=== PATIENT | female | born 1995 | race Caucasian/White ===

== ENCOUNTER 2022-09-20 03:12 | Outpatient (RCR) | payer OTHER, BC, SELFPAY ==
--- NOTE | 2022-09-20 04:03 | PC.NURSE ---
Dr. Angela Sousa notified at 0305 of PT 39 weeks arriving to unit with c/o DFM and leaking. PT reports she felt baby move on her way to unit. PT marking movement via marker. ROM plus negative. PT davey q5-7mins, resting tone soft to palpation. PT does not feel contractions at this time. Orders for discharge received.
[2022-09-20 05:18] VITALS: BP 102/79; PULSE 99
== END 2022-12-19 23:59 | disposition home or self-care (01) ==
LOC: ANHOBOP 03:12
PROVIDERS: PCP Emergency Medicine; Visit Provider Obstetrics & Gynecology
DX: O36.8130 Decreased fetal movements, third trimester, not applicable or unspecified (principal); Z3A.39 39 weeks gestation of pregnancy
CPT/HCPCS: 59025; 84112

== ENCOUNTER 2022-09-22 09:09 | Inpatient (IN) | payer OTHER, BC, SELFPAY ==
[2022-09-22] VITALS (58 sets, daily range): BP systolic 92–146; BP diastolic 45–80; PULSE 87–127; RESP 16; TEMP 36.3–36.5; O2SAT 97–100; BMI 35.6
--- NOTE | 2022-09-22 15:14 | LDADM ---
This patient, Mckenzie Fuentes, was admitted to Labor/Delivery/Recovery 106 on 09/22/22 at 09:09. Plans for labor, pain management and were discussed with patient. Patient/family oriented to hospital policies and general routines including ID bracelet, bed and alarms, visiting hours, pain management, procedures, bathroom and other care routines, personal items, smoking policy, room service/diet and guest tray routines, security routines, and visiting hours. Patient/Family are encouraged to report perceived risks to care and to ask questions if they do not understand what they are told or what they should do. See OBIX for further documentation.
[2022-09-22] MEDS: LACTATED RINGERS 1,000 ML 125 ML IV CONT (15:31)
[2022-09-22] MEDS: AMPICILLIN 2 GM/NS 100 ML 2 GM/100 ML BAG IVPB (15:32)
[2022-09-22 15:43] LABS: Basophils Absolute Auto 0.1 K/mm3 (0.0-0.1); Basophils Percent Auto 0.3 % (0.2-1.2); Eosinophils Absolute Auto 0.1 K/mm3 (0-0.3); Eosinophils Percent Auto 0.4 % (0-4.4); Hematocrit 35.7 % (37.0-47.0); Hemoglobin 12.4 g/dL (12.0-15.0); Immature Granulocyte Absolute 0.15 K/mm3 (0.00-0.031); Immature Granulocyte Percent A 0.9 % (0-0.5); Lymphocytes Absolute Auto 2.39 K/mm3 (0.9-3.2); Lymphocytes Percent Auto 13.6 % (18.3-44.2); Mean Corpuscular HGB Conc 34.7 g/dl (32-36); Mean Corpuscular Hemoglobin 29.5 pg (26-34); Mean Platelet Volume 9.7 fl (7.4-10.4); Monocytes Absolute Auto 0.7 K/mm3 (0.1-0.6); Monocytes Percent Auto 3.9 % (2.6-8.5); Neutrophils Absolute Auto 14.2 K/mm3 (1.3-6.7); Neutrophils Percent Auto 80.9 % (45.5-73.1); Platelet Count Result 384 k/mm3 (150-375); Red Cell Distribution Width 13.3 % (11.5-14.5); White Blood Count 17.6 K/mm3 (4.5-10.0)
--- NOTE | 2022-09-22 17:40 | WPDANESEPP ---
Anes - Eval Pre Procedure Procedure: labor epidural Date/Time: 09/22/22 17:40 Pre Op Diagnosis: LABOR Patient Data Age: 26 Gender: F Height: 1.65 m Weight: 97 kg Last Vital Signs Pulse 110 H 09/22/22 16:00 BP 146/69 H 09/22/22 16:00 O2 Del Method Room Air 09/22/22 15:10 Allergies Allergy/AdvReac Type Severity Reaction Status Date / Time No Known Allergies Allergy Verified 09/09/22 13:52 Home Medications Medication Instructions Recorded Confirmed Type prenat.vits,dania,ajr-mego-dfhnd 1 tablet PO DAILY 09/09/22 09/22/22 History Laboratory Tests 09/22/22 14:57 WBC 17.6 H K/mm3 (4.5-10.0) RBC 4.20 M/mm3 (4.2-5.4) Hgb 12.4 g/dL (12.0-15.0) Hct 35.7 L % (37.0-47.0) MCV 85.0 fl (80-100) MCH 29.5 pg (26-34) MCHC 34.7 g/dl (32-36) RDW 13.3 % (11.5-14.5) Plt Count 384 H k/mm3 (150-375) MPV 9.7 fl (7.4-10.4) Immature Gran % (Auto) 0.9 H % (0-0.5) Neut % (Auto) 80.9 H % (45.5-73.1) Lymph % (Auto) 13.6 L % (18.3-44.2) Bulloch % (Auto) 3.9 % (2.6-8.5) Eos % (Auto) 0.4 % (0-4.4) Baso % (Auto) 0.3 % (0.2-1.2) Lymph # (Auto) 2.39 K/mm3 (0.9-3.2) Bulloch # (Auto) 0.7 H K/mm3 (0.1-0.6) Eos # (Auto) 0.1 K/mm3 (0-0.3) Baso # (Auto) 0.1 K/mm3 (0.0-0.1) Abs Immat Gran (auto) 0.15 H K/mm3 (0.00-0.031) Absolute Neuts (auto) 14.2 H K/mm3 (1.3-6.7) Absolute Nucleated RBC 0.0 K/mm3 (0.0-0.012) Nucleated RBC % 0.0 % (0.0-0.2) RPR Pending Blood Type A Positive Antibody Screen Negative Patient hx anesthesia problems: none Family hx anesthesia problems: none Results Review: All pre-operative results and documents have been reviewed as part of the pre-operative evaluation. [facility] Past Medical History Medical History (Updated 09/22/22 @ 17:42 by Fina Tovar CRNA) Asthma childhood asthma Migraine Family History Family History Grandparent Lung cancer Father A-fib Myocardial infarction Social History Social History Smoking status: Never smoker Substance use: never Lack of Transportation: No Lack of Food: Never True Current Housing: I Have Housing Concerned About Future Housing: No Difficulty Paying Gas/Electric Bills: No Difficulty Paying for Meds: No Currently Unemployed: No Education: Don't Know Difficulty w/ Childcare or Family Care: No Spiritual care concerns: No Exam Day of Procedure 09/22/22 17:40 Patient weight: obese Heart: regular rate and rhythm Lungs: normal air movement Airway: Mallampati scale Neurological: alert and oriented
[2022-09-22] MEDS: AMPICILLIN 1 GM/NS 50 ML 1 GM/50 ML BAG IVPB ×2 (19:56→23:51)
[2022-09-22] MEDS: OXYTOCIN 30 UNITS/NS 500 ML 30 UNITS/500 ML BAG 6 UNITS IV CONT (20:18)
[2022-09-22] MEDS: ACETAMINOPHEN 500 MG TABLET 1000 MG PO (23:51)
[2022-09-23] VITALS (210 sets, daily range): BP systolic 80–182; BP diastolic 38–160; PULSE 78–147; RESP 16–20; TEMP 36.3–36.9; O2SAT 79–100
[2022-09-23] MEDS: AMPICILLIN 1 GM/NS 50 ML 1 GM/50 ML BAG IVPB ×3 (04:03→11:58)
[2022-09-23] MEDS: ONDANSETRON INJ 4 MG/2 ML VIAL IV PUSH (04:14)
--- NOTE | 2022-09-23 07:37 | WPDOBADMIT ---
Obstetrics - Admit Note Admission Note: record reviewed. Additions to the history and/or subsequent changes in the physical findings follow. 26 y/o at 39 2/7 weeks here with contractions. Latent labor diagnosed yesterday; patient preferred to stay for labor augmentation. She is now mostly comfortable with epidural, but is very afraid she might feel some pain. GBS pos. AVSS NST reactive TOCO: contractions every 2-4 min ABD soft, nontender, gravid, vertex EXT nontender Cervix 7-8/90/0. AROM with clear fluid. Vertex. A: IUP at term with labor. P: Continue oxytocin for augmentation, ampicillin for GBS. Anticipate .
[2022-09-23] MEDS: LACTATED RINGERS 1,000 ML 125 ML IV CONT (08:12)
--- NOTE | 2022-09-23 12:50 | PM.OBPRVD ---
OB - Delivery Note Procedure Delivery date: 09/23/22 Procedure: Events: Positive Group B Strep (GBS) Induction method: None Delivery augmentation: Rupture of Membranes and Pitocin Delivery monitor: External FHT and External Uterine Route of delivery: Laceration Description: Perineal - 2nd Degree Delivery repair: vicryl (3-0) Specimen: Yes (cord blood) Quantitative Blood Loss (ml): 240 Anesthesia type: Epidural Disposition: PACU Complications: None Narrative: 26 y/o at 39 3/7 weeks gestation who presented to the hospital with contractions. Latent labor was diagnosed. She preferred augmentation with oxytocin. She was given ampicillin for GBS colonization. Oxytocin was administered intravenously. Amniotomy was performed with return of clear fluid. She received an epidural for pain control. Her labor progressed and her cervix dilated completely. She pushed with good effort and delivered the 's head to the perineum, followed by the body. The nose and mouth were bulb suctioned. After a delay, the cord was clamped and cut. The was handed off the field. Cord blood was collected. The placenta delivered spontaneously and was grossly normal in appearance. The usual 3 vessel cord was noted. A second degree midline perineal laceration was sustained. This was reapproximated using 3 0 Vicryl in the usual layered fashion. Excellent hemostasis resulted as did excellent reapproximation of the normal anatomy. Needle and instrument counts were correct. The patient was taken to recovery room in stable condition. The infant went to the nursery in stable condition. I was present and scrubbed for the entire delivery. Baby Date of : 09/23/22 Time of : 12:23 Weeks of gestation at delivery: 39 Infant gender: Male Weight (pounds): 9 Weight (ounces): 1 presentation: vertex position: Right Occiput Anterior Placenta delivery description: Spontaneous and Normal Configuration Cord Vessel Description: 3 Vessels and Delayed Cord Clamping score one minute: 8 score five minutes: 9
--- NOTE | 2022-09-23 12:54 | PM.OBDSVD ---
DS: Admitting Diagnosis Discharge Date 09/25/22 Admitting Diagnosis IUP at 39 3/7 weeks Labor DS: Discharge Diagnosis Discharge Diagnosis (1) (normal spontaneous vaginal delivery): Code(s): O80 - Encounter for full-term uncomplicated delivery Status: Acute OB - DS: Summary OB Procedures : None OB Procedures Intrapartum: GBS prophylaxis OB Procedures: : None Time Spent with Patient Time attestation: Total time spent providing and/or coordinating discharge services: DS: Data Data Completed and Pending Labs on day of discharge: Labs from last 24 hours 09/22/22 14:57 WBC 17.6 H RBC 4.20 Hgb 12.4 Hct 35.7 L MCV 85.0 MCH 29.5 MCHC 34.7 RDW 13.3 Plt Count 384 H MPV 9.7 Immature Gran % (Auto) 0.9 H Neut % (Auto) 80.9 H Lymph % (Auto) 13.6 L [place] % (Auto) 3.9 Eos % (Auto) 0.4 Baso % (Auto) 0.3 Lymph # (Auto) 2.39 [place] # (Auto) 0.7 H Eos # (Auto) 0.1 Baso # (Auto) 0.1 Abs Immat Gran (auto) 0.15 H Absolute Neuts (auto) 14.2 H Absolute Nucleated RBC 0.0 Nucleated RBC % 0.0 RPR Pending Blood Type A Positive Antibody Screen Negative Discharge Plan Discharge Attending physician on discharge: Mathew Rudolph Discharging Clinician: Mathew Rudolph Patient Disposition: Home, Self-Care Activity: pelvic rest Diet: regular Discharge Instructions: Education: Mom and Baby Guide Given to: Mother Follow-Up: Call your delivering provider's office for an appointment to be seen in: 6 Weeks Mom and baby should come to the [facility] for the follow-up appointment. Appointment Date/Time: September 27, 2022 at 10:00 am What to expect at your follow-up visit: Blood Pressure Check Call [phone] if you are unable to keep your appointment time. BREAST CARE: * Wear a snug supportive bra. * For engorgement discomfort: Breast Feeding: * Apply warm moist washcloths * Express milk as needed to relieve engorgement * Wear loose clothing Bottle Feeding: * May apply ice packs * For sore nipples: * Identify correct latch-on * Apply warm moist washcloths before and after nursing * Air dry nipples after nursing * May apply Lansinoh cream to nipples PERINEAL CARE: * Until bleeding stops, use your alexus bottle after urinating * Change your pad frequently throughout the day * You may take sitz baths several times a day (fill your bathtub with warm water and soak for 20 minutes.) Do NOT bathe in the water * No tub baths until seen by your physician - You may shower ACTIVITY: * Rest as much as possible. * Do not exercise or lift anything heavier than your baby (such as laundry or other children.) * Avoid stairs or driving as much as possible. * Do not put anything into the vagina. No douching, tampons, or sexual activity until seen by physician. NOTIFY PHYSICIAN IF YOU HAVE ANY QUESTIONS OR IF ANY OF THE FOLLOWING SYMPTOMS OCCUR: * If your perineum becomes red, swollen, or more painful than what you have experienced in the hospital. * If your vaginal bleeding becomes foul smelling. * If your vaginal bleeding becomes more heavy than a period or if your bleeding changes from pink to bright red. However, you may pass an occasional walnut-sized clot once or twice for the first week . * If you experience a sharp, shooting pain in you calves. * If you discover a hard, reddened area on your breast or if you experience flu-like symptoms. * If you have a fever of 100.4 or greater DIET: * Eat regular, well-balanced meals. * Drink plenty of fluids daily. If , drink to thirst.Call or return if temperature above 100.4? F, increased abdominal pain, increased vaginal bleeding or any new problems. Stand Alone Forms: General Discharge Information Follow-up/Referrals: Kd Almazan MD [Physician] - 6 Weeks Disc
[2022-09-23] MEDS: OXYTOCIN 30 UNITS/NS 500 ML 30 UNITS/500 ML BAG 125 UNITS IV CONT (12:55)
[2022-09-23 13:15] LABS: Rapid Plasma Reagin Non-Reactive (NonReactive)
[2022-09-23] MEDS: IBUPROFEN 600 MG TABLET PO (14:35)
[2022-09-23] MEDS: WITCH HAZEL 40 PADS 1 PAD TOPICAL (15:20)
[2022-09-23] MEDS: BENZOCAINE 20% AER SPR (*SP) 56 GM CAN 1 SPRAY TOPICAL (15:20)
--- NOTE | 2022-09-23 15:26 | PC.NURSE ---
Patient transferred to post room #280 via wheelchair. Support person present. Oriented to unit, room, information board, rooming in, admission packet and security measures. Patient verbalizes understanding.
[2022-09-24 01:10] VITALS: BP 107/65; PULSE 86; RESP 16; TEMP 36.7; O2SAT 99
[2022-09-24] MEDS: IBUPROFEN 600 MG TABLET PO ×2 (04:42→17:22)
[2022-09-24 06:20] LABS: Hematocrit 30.1 % (37.0-47.0); Hemoglobin 10.2 g/dL (12.0-15.0)
[2022-09-24 07:50] VITALS: BP 106/68; PULSE 86; RESP 16; TEMP 36.8; O2SAT 98
--- NOTE | 2022-09-24 07:58 | WPDANLDPN2 ---
Anes-Prog Note L&D Date/Time: 09/24/22 07:58 Neuro status: Neuro function grossly intact. Vital Signs: Last Vital Signs Temp 36.7 C 09/24/22 01:10 Pulse 86 09/24/22 01:10 Resp 16 09/24/22 01:10 BP 107/65 09/24/22 01:10 Pulse Ox 99 09/24/22 01:10 O2 Del Method Room Air 09/22/22 15:10 Pain score (VAS): 0 I/O: Intake & Output 09/23/22 09/23/22 09/24/22 15:59 23:59 07:59 Intake Total 1000 480 Output Total 1215 Balance -215 480 Patient feedback: Patient satisfied with anesthetic care.
--- NOTE | 2022-09-24 08:09 | PM.OBPNVD ---
OB - PN: Subj Subjective Date/time seen: 09/24/22 08:09 Narrative: Pain OK. Would like circumcision for son. OB - PN: Obj Data Labs 09/24/22 04:35 Labs: Laboratory Results - last 24 hr 09/22/22 09/24/22 14:57 04:35 Hgb 10.2 L Hct 30.1 L RPR Non-reactive OB - PN A/P Plan Comments: A: PPD#1, doing well. P: Routine care. Reviewed circ. Exam Psych: Other: AVSS ABD soft, nontender, fundus firm EXT nontender
[2022-09-24] MEDS: DOCUSATE SODIUM 100 MG CAPSULE PO ×2 (08:50→17:22)
[2022-09-24] MEDS: MULTIVIT/MIN/PREN/FOL AC/IRON TABLET 1 TAB PO ×2 (08:50)
--- NOTE | 2022-09-24 15:32 | PC.NURSE ---
[id number] Introductions were made, then consulted with patient to assess needs related to . Mother led the conversation with her?plans to feed?her infant and the?experience so far. Resources provided for inpatient and outpatient services with the feeding sheet, mom/baby guide and name written on the white board. Mother voiced understanding of information and requested assistance with . Mother works well with her with encouragement and education. Encouraged understanding of the benefits of skin to skin (demonstrating unwrapping infant and placing upright on her chest), stimulating with massage touch, changing positions to encourage wakefulness, how to watch for early feeding cues, responsive feeding, feeding on demand (aiming for 8-12 times in 24 hours, about every 2-3 hours), milk production, building/maintaining a milk supply, duration of feeding, signs of adequate intake/output and how to record on the feeding sheet. Reviewed positioning and ear, shoulder, hip alignment, supporting the breast to facilitate a deep latch, asymmetrical latch (off-center), leading with the chin with a big, open, wide gape and body close to mother. latched optimally to the right breast in football position. Education given to mother of how to visualize suck/swallow ratios and listen for drinking at the breast. was able to maintain latch without discomfort to mother. Nipple care reviewed with optimal latch and good positioning. Reviewed good handwashing when or touching the breast/nipples to prevent infection. Resources used to facilitate learning were used with the tool, mom and baby guide. Mother voiced understanding of skin to skin, stimulating with massage touch, responsive feedings, hand expressed colostrum, talking to to encourage if it has been 2 -2.5 hours since the start of the last , to call if infant does not latch, or if there is discomfort with . Resources provided for inpatient/outpatient with business card and mom/baby guide. Parents voiced understanding of information, demonstrated learning and will call if there is a request for assistance. Reported to the primary RN. [phone] Mother requested assistance. Reviewed positioning and with minimal assistance in was latched effectively to the left breast using football position, sandwich support of the breast, and mother denies pain. Swallowing is visualized and heard. Mother voiced understanding of skin to skin, stimulating with massage touch, responsive feedings, hand expressed colostrum, talking to infant to encourage if it has been 2 -2.5 hours since the start of the last , to call if does not latch, or if there is discomfort with . Mother voiced understanding of information, demonstrated learning and will call if there is a request for assistance. Reported to the primary RN.
[2022-09-25] MEDS: ACETAMINOPHEN 325 MG TABLET 650 MG PO ×2 (00:09→09:39)
[2022-09-25] MEDS: IBUPROFEN 600 MG TABLET PO ×2 (00:09→09:40)
[2022-09-25 00:15] VITALS: BP 104/53; PULSE 76; RESP 15; TEMP 36.4; O2SAT 99
[2022-09-25 08:22] VITALS: BP 110/40; PULSE 83; RESP 18; TEMP 36.7; O2SAT 99
--- NOTE | 2022-09-25 08:25 | PM.OBPNVD ---
OB - PN: Subj Subjective Date/time seen: 09/25/22 08:25 Narrative: Pain OK. Would like to go home. OB - PN: Obj Data Labs 09/24/22 04:35 OB - PN A/P Plan Comments: A: PPD#2, doing well. P: Home to f/u 6 weeks. Exam Psych: Other: AVSS ABD soft, nontender, fundus firm EXT nontender
--- NOTE | 2022-09-25 09:15 | PC.NURSE ---
Pt introductions made and plan of care discussed per post , pain management, breast feeding, daily care activities and pending discharge to home. PT and spouse both recipients of such instructions and no barriers to learning noted at this time. PT received such instructions per one to one discussion , mom baby care guide and demonstrations this shift. PT verbalized understanding of such care.
[2022-09-25] MEDS: DOCUSATE SODIUM 100 MG CAPSULE PO (09:40)
[2022-09-25] MEDS: LANOLIN (LANSINOH) 7.5 GM CREAM 1 APPLIC TOPICAL (09:41)
[2022-09-25] MEDS: MULTIVIT/MIN/PREN/FOL AC/IRON TABLET 1 TAB PO (09:42)
--- NOTE | 2022-09-25 11:30 | PC.NURSE ---
PT received discharge instructions per protocol and verbalized understanding of such care. Patient viewed the discharge video Mother & Baby Care, The First Two Weeks . Patient was given the opportunity and encouraged to ask questions. Patient verbalized understanding of information shared and has been given the mother/baby guide for home reference.
--- NOTE | 2022-09-25 13:02 | PC.NURSE ---
[id number] Purposefully rounded to assess needs. Mother is demonstrating her ability to independently latch optimally without discomfort to the right breast using the football positioning. Reminded parents to use good handwashing technique to prevent infection. Mother is feeding appropriately for growth of and understands stimulating infant to eat if needed. Infant has had appropriate feedings in the last 24 hours meets the outcomes for weight, output and jaundice at this time. Mother states she is confident to continue effectively breastfeed her at home, when to call for assistance and denies any additional assistance or education at this time. Reinforced understanding of milk production, transition of milk, signs of adequate intake, transition of stool, prevention/relief of engorgement, responsive watching for feeding cues, the different methods of stimulating to breastfeed 2-3 hours after the start of the last feeding, community resources, medication information reviewed per [employer] and when to call a provider using the resource of the mom and baby guide. Mother voiced understanding of the education shared. Reported to the primary RN.
[2022-09-27 09:30] VITALS: BP 119/75; PULSE 88; RESP 20; TEMP 37.2; O2SAT 98
== END 2022-09-25 12:23 | disposition home or self-care (01) | DRG 807 ==
LOC: ANHLDR 09-23 12:56 → ANHOB2 09-24 12:44 → ANHLDR 09-26 11:07 → ANHOB2 09-26 11:07
PROVIDERS: Admitting Provider Obstetrics & Gynecology; PCP Emergency Medicine; Visit Provider Obstetrics & Gynecology
DX: O99.824 Streptococcus B carrier state complicating childbirth (principal); O70.1 Second degree perineal laceration during delivery; Z37.0 Single live birth; Z3A.39 39 weeks gestation of pregnancy
CPT/HCPCS: 36415; 85014; 85018; 85025; 86592; 86850; 86900; 86901; A9270; J0290; J2405; J2590; J2795; J7120